=== PATIENT | male | born 2000 | race Caucasian/White ===

== ENCOUNTER 2018-12-22 17:56 | Inpatient (IN) ==
[2018-12-22 19:57] LABS: BASO# 0.04 X1000 (0.0-0.2); BASO% 0.5 % (0.0-0.8); EOS# 0.09 X1000 (0.0-0.7); HEMATOCRIT 48.1 % (42.0-52.0); HEMOGLOBIN 16.9 g/dL (14.0-18.0); IMM GRAN# 0.01 X1000 (0.0-0.04); IMM GRAN% 0.1 % (0.0-0.5); LYMPH# 2.51 X1000 (1.2-3.4); LYMPH% 28.4 % (20.5-51.1); MCH 28.8 PG (27-31); MCHC 35.1 g/dL (33-37); MCV 81.9 FL (81-99); MONO# 0.75 X1000 (0.11-0.59); MONO% 8.5 % (1.7-9.3); MPV 10.2 FL (7.4-10.4); NEUT# 5.43 X1000 (1.4-6.5); NEUT% 61.5 % (42.2-75.2); PLT 244 X1000 (130-400); RBC 5.87 XMIL (4.7-6.1); WBC 8.83 X1000 (4.8-10.8)
[2018-12-22 20:38] LABS: AGAP 12; ALKALINE PHOSPHATASE 69 U/L (32-122); BUN 16 mg/dL (8-22); CHLORIDE 101 mmol/L (98-107); CK PROFILE 5792 U/L (24-204); COSMO 280; CREATININE 1.1 mg/dL (0.7-1.2); ESTIMATED GFR > 60; GLUCOSE 87 mg/dL (70-104); GOT 110 U/L (10-34); GPT 85 U/L (10-44); POTASSIUM 3.7 mmol/L (3.5-5.1); SODIUM 140 mmol/L (136-145); TCO2 27 mmol/L (25-35); TOTAL PROTEIN 7.7 g/dL (6.3-8.3)
--- NOTE | 2018-12-22 20:58 | Extremity Venous Study ---
Venous U/S Right Arm - 12/22/2018 INDICATION: swollen arm TECHNIQUE: COMPARISON: None FINDINGS: The veins of the right arm are fully compressible. There is normal color and pulse wave Doppler signal. Arterial signal appears normal. No fluid collections. IMPRESSION: Negative exam. Electronically signed by Judson Leon 12/22/2018 8:56 PM
[2018-12-22 21:08] LABS: CK INDEX 0.1 (0.0-2.5); CK-MB 3.03 ng/mL (0.0-5.0)
--- NOTE | 2018-12-22 22:29 | Diag Imaging Result Doc PS360 ---
CT THORAX W/CONTRAST - 12/22/2018 INDICATION: RIGHT ARM EDEMA COMPARISON: None FINDINGS: Heart and great vessels are normal. Upper abdominal images are normal. The chest is clear. No adenopathy. Bones are intact. The subclavian arteries and veins are patent bilaterally. The major arteries and veins of the right upper extremity are normal. There is some nonspecific subcutaneous edema in the right axilla and right arm. No drainable fluid collections. IMPRESSION: Nonspecific subcutaneous edema in the right axilla and right arm. Normal exam of the veins and other vessels. This exam was performed using automated exposure control, adjustment of mA or kV according to patient size, and/or use of iterative reconstruction technique Electronically signed by Judson Leon 12/22/2018 10:26 PM
[2018-12-22] MEDS ORDERED: NS 2,000 ML IV ONE (23:12)
[2018-12-23] MEDS ORDERED: NS 2,000 ML IV ONE (00:25)
[2018-12-23] MEDS ORDERED: TYLENOL PO PRN (00:25)
[2018-12-23 07:54] LABS: CK INDEX 0.1 (0.0-2.5); CK-MB 2.22 ng/mL (0.0-5.0)
--- NOTE | 2018-12-23 11:37 | HISTORY AND PHYSICAL ---
PRIMARY CARE PHYSICIAN: None. CHIEF COMPLAINT: Right elbow swelling that began yesterday and progressively worsened. HISTORY OF PRESENTING ILLNESS: This is a 18-year-old, male, who presents to [facility] ER with complaints of swelling from the top of his mid forearm down to the right elbow that began yesterday morning. There was minimal warmth to touch. No erythema. No signs of infection noted. He states that he does lift weights, but his last time to lift weights was last Saturday and had no problems since then. He states yesterday that he just did not feel good all over, so he came to the emergency room. His white blood cell count was normal at 8.83. He had an elevated D-dimer at 1.55. We did a chest CT that showed nonspecific subcutaneous edema in the right axilla and right forearm, but normal exam of the veins and other vessels. We did a venous ultrasound of his right arm that was negative. His CPK was elevated at 5792 with a CK-MB of 3.03. This a.m., it went down to a CK of 4076 with a CK-MB of 2.22. He was admitted for further evaluation and treatment. PAST MEDICAL HISTORY: None. PAST SURGICAL HISTORY: None. FAMILY HISTORY: Reviewed and noncontributory. SOCIAL HISTORY: Currently lives with family. Denies any tobacco, alcohol or illicit drug use. ALLERGIES: He has no known drug allergies. HOME MEDICATIONS: He does not take any medication on a routine basis. LABORATORY DATA: Showed a white blood cell count of 8.83, a hemoglobin of 16.9, hematocrit 48.1, platelets of 244. D-dimer of 1.55. Sodium 140, potassium 3.7, chloride 101, CO2 27, BUN of 16, creatinine 1.1, glucose 87, AST of 110, ALT of 85. CK of 5792 with a CK-MB of 3.03. Repeat this morning showed a CK of 4076 with a CK-MB of 2.22. X-RAYS: Right upper extremity venous Doppler showed a negative exam. Chest CT showed nonspecific subcutaneous edema in the right axilla and right arm. Normal exam of the veins and other vessels. Chest was clear. REVIEW OF SYSTEMS: He denied any fever, chills, blurred vision, dizziness, chest pain, coughing, shortness of breath. He did have some pain to his right elbow with the swelling. Denied any abdominal pain, constipation, diarrhea, burning or hurting with urination. PHYSICAL EXAMINATION: VITAL SIGNS: On arrival, he had a temperature of 98 degrees, a pulse of 90, respirations 18, blood pressure 127/72, satting 98% on room air. GENERAL: This is a 18-year-old male, who is lying in the bed and answers questions appropriately. HENT: Normocephalic, atraumatic. Normal ENT inspection. Oropharynx and nares are clear. EYES: Pupils are equal, round, reactive to light and accommodation. Extraocular movements are intact. NECK: Normal inspection. Normal range of motion. LUNGS: Clear to auscultation bilaterally with equal lung expansion and chest wall movement. HEART: With regular rate and rhythm. No murmurs, rubs, or gallops. ABDOMEN: Soft, nontender, nondistended. Bowel sounds are present x4 quadrants. MUSCULOSKELETAL: He has edema to his right elbow with some mild warmth to touch. No erythema or signs of infection noted otherwise. Moves all of his extremities well. Has 5/5 strength in all extremities. NEUROLOGICAL: The cranial nerves 2-12 appear grossly intact. ASSESSMENT: 1. Right elbow edema. 2. Rhabdomyolysis. 3. An elevated D-dimer ruled out for pulmonary embolus or deep vein thrombosis to his right upper extremity. PLAN: He has been admitted to the medical unit. Placed on a regular diet. We are going to consult Orthopedics. We are going to x-ray his right elbow. Continue normal saline at 125 mL an hour. Recheck CPK in the morning along with a CBC and a BMP. Further orders after seen by attending and by pension consultant. Dictated by ANGELINA De La O for Bebeto Robison MD cc: ANGELINA De La O MD
--- NOTE | 2018-12-23 11:40 | Diag Imaging Result Doc PS360 ---
EXAM: ELBOW COMPLETE RIGHT HISTORY: Right elbow swelling,pain TECHNIQUE: Right elbow, three views COMPARISON: None. FINDINGS: No fracture. No dislocation. No other bony abnormality. No foreign body. IMPRESSION: No bony abnormality. Electronically signed by Ken Mariee 12/23/2018 11:38 AM
[2018-12-23] MEDS: NS 1,000 ML IV SCH ×2 (12:43→19:54)
[2018-12-23] MEDS: NAPROSYN PO SCH ×2 (14:46→21:16)
--- NOTE | 2018-12-23 22:01 | HISTORY AND PHYSICAL ---
ADDENDUM: Patient was seen and examined by myself. Full note dictated and discussed with nurse practitioner. Patient presented to the hospital with right arm and elbow swelling and pain. Notes he has been losing weight steadily over the past few days. His CPK is elevated at 5000. We are going to admit him to the hospital, treat him for rhabdomyolysis. We will ask Orthopedics to evaluate his arm pain and will follow. cc: Bebeto Robison MD
[2018-12-24] MEDS: NS 1,000 ML IV SCH ×3 (04:14→15:43)
[2018-12-24 05:40] LABS: BASO# 0.02 X1000 (0.0-0.2); BASO% 0.3 % (0.0-0.8); EOS% 3.1 % (0.0-10.0); HEMOGLOBIN 13.7 g/dL (14.0-18.0); LYMPH# 2.64 X1000 (1.2-3.4); LYMPH% 40.9 % (20.5-51.1); MCH 28.8 PG (27-31); MCHC 34.3 g/dL (33-37); MCV 84.2 FL (81-99); MONO# 0.58 X1000 (0.11-0.59); MPV 10.2 FL (7.4-10.4); NEUT# 3.02 X1000 (1.4-6.5); NEUT% 46.7 % (42.2-75.2); PLT 202 X1000 (130-400); RBC 4.75 XMIL (4.7-6.1); RDW 11.9 % (11.5-14.5); WBC 6.46 X1000 (4.8-10.8)
--- NOTE | 2018-12-24 05:56 | ORTHOPAEDICS CONSULTATION ---
DATE: 12/23/2018 CHIEF COMPLAINT: Right elbow pain and swelling. HISTORY OF PRESENT ILLNESS: This 18-year-old male is are he presented to [facility] with complaints of swelling from his right upper extremity down his forearm. This swelling started yesterday morning. He states it has improved since then. Blood work was obtained in the emergency department and it was noted that he had elevated D-dimer. They did a chest CT and it showed nonspecific subcutaneous edema and rash on the right forearm. Otherwise, his ultrasound was normal of the right upper extremity. His CPK levels was elevated with 5792 and CK-MB of 3.03. He is admitted for further evaluation and treatment and to rehydrate him. PAST MEDICAL HISTORY: Patient denies. PAST SURGICAL HISTORY: Patient denies. FAMILY HISTORY: Noncontributory. SOCIAL HISTORY: Lives with family. Denies tobacco, alcohol, or drug use. ALLERGIES: No known drug allergies. HOME MEDICATIONS: He denies. LABORATORY DATA: White blood cells 8.3, hemoglobin 16.9, hematocrit 48.1. D- dimer 1.55. Sodium 140, potassium 3.7, chloride 101, BUN 16, creatinine 1.1, glucose 87, AST 110, ALT 85, creatine kinase latest was 4076, CK-MB 2.2. Vital signs have been stable. His x-rays of the right upper extremity were negative. REVIEW OF SYSTEMS: The patient denies fever, chills, or chest pain. He also denies shortness of breath. Twelve point review of systems performed and pertinent positives are listed in HPI. PHYSICAL EXAMINATION: General: The patient is awake, alert, sitting on the hospital bed comfortably. HEENT: Head is atraumatic, normocephalic. Normal ENT inspection. Eyes: Equal, round and reactive to light. Neck: Supple. Lungs: There is equal chest expansion, rise and fall. Heart: Regular rate and rhythm. Abdomen: Soft, nontender. Musculoskeletal: There is some moderate to severe edema to the right upper extremity from his elbow down to his forearm. There is some warmth to the touch. There is no erythema or signs of infection at this time. He can bend the elbow and move the extremities well. There is a negative Speed test. There is good range of motion. There is 5/5 sales and marketing associate strength. There is good radial pulse. There is good capillary refill. ASSESSMENT: 1. Right elbow edema with overuse injury. 2. Rhabdomyolysis. 3. Elevated D-dimer. PLAN: At this time, we will continue with rest, ice, compression and elevation. He can start taking some anti-inflammatories when his rhabdomyolysis is more under control. He is to follow up with Orthopedics in the clinic in about 1 week. We will check back on him then. Dictated by ANGELINA Kebede for Rudy Gore MD cc: ANGELINA Kebede MD [facility]
[2018-12-24 06:14] LABS: AGAP 9; BUN 16 mg/dL (8-22); CALCIUM 8.8 mg/dL (8.8-10.2); CHLORIDE 107 mmol/L (98-107); COSMO 280; ESTIMATED GFR > 60; GLUCOSE 93 mg/dL (70-104); SODIUM 140 mmol/L (136-145); TCO2 24 mmol/L (25-35)
[2018-12-24 07:25] LABS: CK-MB 2.05 ng/mL (0.0-5.0)
[2018-12-24 07:26] LABS: CK INDEX 0.1 (0.0-2.5)
[2018-12-24] MEDS ORDERED: SODIUM BICARBONATE 8.4% 150 MEQ in D5W 1,000 ML IV SCH (07:30)
[2018-12-24] MEDS: NAPROSYN PO SCH ×2 (09:36→20:04)
[2018-12-24 18:49] LABS: CK INDEX 0.1 (0.0-2.5); CK-MB 2.28 ng/mL (0.0-5.0)
--- NOTE | 2018-12-24 19:59 | PROGRESS NOTE ---
DATE: 12/24/2018 SUBJECTIVE: The patient states that his arm is improving. He is still having swelling and pain, but overall it is better. Denies any fevers or chills. OBJECTIVE: Vital signs reviewed. Temperature 97.6 degrees, pulse 65, respiratory 18, BP 116/58.General: The patient is awake, alert. He is in no distress, notes that he is feeling a little bit better. HEENT: Normocephalic. Neck supple. Cardiovascular: Regular rate. Chest clear. Abdomen soft. Extremities: Moves all extremities. ASSESSMENT: 1. Rhabdomyolysis. CPK has decreased. It was 5000, currently at 2200. 2. Right elbow pain and edema, more likely overuse injury. PLAN: We will continue the patient in the hospital. Recheck his CPK. If it is better, hopefully we can discharge home tonight. If not, he should be able to discharge tomorrow. cc: Bebeto Robison MD
[2018-12-25] MEDS ORDERED: SODIUM BICARBONATE 8.4% 150 MEQ in STERILE WATER INJ. 1,000 ML IV SCH (01:00)
--- NOTE | 2018-12-25 01:50 | PROVIDER DOCUMENTATION ---
This chart was entered by Sabine Nunn Scribe, acting as scribe for Harrison Melo MD. HPI-General Adult - General Chief Complaint: Extremity Pain Stated Complaint: RIGHT ARM SWOLLEN Time Seen by Provider: 12/22/18 19:25 Source: patient Allergies/Adverse Reactions: Patient Allergies Allergy/AdvReac Type Severity Reaction Status Date / Time No Known Allergies Allergy Verified 12/22/18 18:15 Home Medications: Home Medication List Medication Instructions Recorded Confirmed Last Taken Type NK [No Home Medications] 12/22/18 12/22/18 Unknown History - History of Present Illness -Gen Adult Nature of Presenting Problems: 18yom presents to ED cc swelling in right elbow down to top of mid forearm since this morning. Pt reports he was weightlifting on last Saturday but hasn't done any since. Pt denies pain and has full ROM. Location of Pain/Injury: reports: upper extremity (right elbow) Pain Radiation: reports: arm(s) (right top mid forearm) Quality of Pain: reports: none Onset/Duration: reports: this morning Timing: reports: still present Context/Activities at Onset: reports: moderate activity Modifying Factors: improves with: nothing Associated Symptoms: reports: denies symptoms Similar Symptoms Previously?: No Recently seen or treated by another doctor?: No Review of Systems - Adult - REVIEW OF SYSTEMS - ADULT Constitutional: reports: no symptoms reported Past History - Adult - PAST MEDICAL HISTORY-ADULT Review of Records: reports: Old Records Reviewed Major Childhood Illnesses: reports: denies history Cardiovascular: reports: denies history Respiratory: reports: denies history Gastrointestinal: reports: denies history Obstetrical/Gynecological: reports: denies history Genitourinary: reports: denies history Musculoskeletal: reports: denies history Neurological: reports: denies history Endocrine/Immune: reports: denies history Other Conditions: reports: denies history - IMMUNIZATION STATUS Childhood Immunizations: See Nurse Assessment Flu Vaccine: See Nurse Assessment - FAMILY HISTORY Family History: reviewed, not pertinent Physical Exam-General - PHYSICAL EXAM-ADULT Initial Vital Signs Reviewed: Yes - CONSTITUTIONAL General Appearance: appears well, alert, no apparent distress. negative: anxious - EYES Eyes: PERRL/EOMI, pink conjunctivae. negative: pale conjunctivae, photophobia - HEAD, EARS, NOSE, MOUTH & THROAT HENMT: normocephalic/atraumatic, moist mucous membranes, normal ENT inspection. negative: angioedema - NECK Neck: non-tender, full range of motion, supple, normal inspection. negative: C- spine tenderness - RESPIRATORY Respiratory: chest non-tender, lungs clear, normal breath sounds, no pleuratic chest pain, no respiratory distress, no accessory muscle use. negative: crackles, rales, rhonchi, stridor, wheezing - CARDIOVASCULAR Cardiovascular: normal peripheral pulses, regular rate, rhythm, no edema, no gallop, no JVD, no murmur. negative: bradycardia, tachycardia - GASTROINTESTINAL (ABDOMEN) Abdominal Exam: normal bowel sounds, non tender, soft, no organomegaly, no p ulsatile mass. negative: distended, guarding, rigid, rebound, tenderness, hernia, mass - MUSCULOSKELETAL Back Exam: normal inspection, no CVA tenderness, no vertebral tenderness. negative: ecchymosis, swelling Extremity: normal range of motion, non-tender, swelling (right elbow down to top of mid forearm) - SKIN Integumentary: normal turgor, erythema (mild, right elbow), warm (mild, right elbow). negative: cyanosis, diaphoresis, jaundice - NEUROLOGIC Neurologic: bowling ball grader II-XII nml as tested, grossly normal, no motor/sensory deficits. negative: facial droop, focal weakness, motor weakness, sensory deficit - PSYCHIATRIC Psych/Mental Status: normal mood/affect, normal thought content, normal thought process, oriented x 3. negative: disoriented x 3, anxious, disheveled, depressed affect Progress - PLAN OF CARE/RESULTS Progress/Plan/Lab Results: Vital Signs - 8 hr 12/22/18 18:11 Temperature 98 F Pulse Rate 90 Respiratory Rate 18 Blood Pressure 127/72 O2 Sat by Pulse Oximetry 98 Orders Category Date Time Status CBC WITH ELECTRONIC DIFF [HEME] Stat Lab 12/22/18 19:22 Ordered CK PROFILE [SP CHEM] Stat Lab 12/22/18 19:22 Ordered COMPREHENSIVE METABOLIC PANEL [CHEM] Stat Lab 12/22/18 19:22 Ordered D-DIMER [COAG] Stat Lab 12/22/18 19:22 Ordered Result Diagrams: 12/24/18 05:18 12/24/18 05:18 - CT/MRI 1 CT Study: Thorax Impression: See EMR Report (IMPRESSION: Nonspecific subcutaneous edema in the right axilla and right arm. Normal exam of the veins and other vessels. This exam was performed using automated exposure control, adjustment of mA or kV according to patient size, and/or use of iterative reconstruction technique Electronically signed by Judson Leon 12/22/2018 10:26 PM) - ULTRASOUND (By Radiology) 1 US Study: Upper Ext (right arm) Impression: See EMR Report (IMPRESSION: Negative exam. Electronically signed by Judson Leon 12/22/2018 8:56 PM) Departure - Departure Date of Disposition Decision: 12/22/18 Time of Disposition Decision: 23:30 DIAGNOSIS: Rhabdomyolysis Disposition: ADMITTED INPATIENT 09 Certified Medical Emergency: Emergent Condition: Stable - Critical Care Note This patient required my direct & personal management of CC.: No Attestation - Physician/ ALEE Attestation Patient care was provided by Advanced Practice Provider:: No The physician spent face to face time with patient:: Yes Advanced Practice Provider documentation review:: Supervising physician onsite and consulted in the evaluation and care of this patient. The physician did have a face to face encounter with the patient. This chart was documented by the indicated scribe, (Sabine Nunn Scribe) and accurately reflects the services I performed and decisions made by me, Harrison Melo MD, as attested by the provider's signature.
[2018-12-25] MEDS: NS 1,000 ML IV SCH (06:09)
[2018-12-25 06:41] VITALS: BP 102/61
[2018-12-25 08:14] LABS: AGAP 9; ALBUMIN 3.9 g/dL (3.5-5.0); ALKALINE PHOSPHATASE 58 U/L (32-122); BUN 16 mg/dL (8-22); CALCIUM 8.6 mg/dL (8.8-10.2); CHLORIDE 104 mmol/L (98-107); COSMO 285; ESTIMATED GFR > 60; GLUCOSE 104 mg/dL (70-104); GOT 29 U/L (10-34); GPT 40 U/L (10-44); MAGNESIUM 1.7 mg/dL (1.5-2.7); POTASSIUM 3.7 mmol/L (3.5-5.1); SODIUM 142 mmol/L (136-145); TCO2 29 mmol/L (25-35); TOTAL PROTEIN 6.3 g/dL (6.3-8.3)
[2018-12-25] MEDS: NAPROSYN PO SCH (08:29)
[2018-12-25 08:37] LABS: CK INDEX 0.2 (0.0-2.5); CK-MB 1.65 ng/mL (0.0-5.0)
--- NOTE | 2018-12-25 15:23 | DISCHARGE SUMMARY ---
ADMISSION DATE: 12/23/2018 DISCHARGE DATE: 12/25/2018 PRIMARY CARE PHYSICIAN: None. ADMISSION DIAGNOSES: 1. Right elbow edema. 2. Rhabdomyolysis. 3. Elevated D-dimer that was ruled out for pulmonary embolism or deep vein thrombosis of his right upper extremity. DISCHARGE DIAGNOSES: 1. Right elbow pain and edema, most likely related to overuse injury. 2. Rhabdomyolysis. SUMMARY OF FINDINGS: This is a 18-year-old male who presented to the Emergency Room with complaints of swelling to the top of his mid forearm down to his right elbow that began on the morning prior to arrival. There was minimal warmth to touch but no erythema. He states he had been lifting weights the last Saturday but had had no problems since then. Stated that the day prior, he just did not feel good all over. When he came to the Emergency Room, he had an elevated D-dimer of 1.55. We did a CT that showed nonspecific subcutaneous edema in the right axilla and right forearm but normal exam of the veins and other vessels. We did a venous ultrasound of the right arm that was negative. He was noted to have a CPK that was elevated at 5792 with a CK-MB of 3.03. He was admitted. We did an x-ray of his right elbow that showed no bony abnormality. We did an orthopedic consultation and they felt it was edema to the right elbow with overuse injury and wanted to continue rest, ice, compression and elevation. Could start taking antiinflammatories once the rhabdomyolysis is more under control. He has slowly trended down. Today his CPK was 1049, so it is felt that he can safely be discharged home today. DISCHARGE MEDICATIONS: None. FOLLOWUP: He will follow up with Dr. Gore from Orthopedics on 12/31/2018 at 9:00 a.m.. All discharge instructions have been reviewed with the patient and he verbalized understanding. Time spent on discharge is 35 minutes. Dictated by ANGELINA De La O for Bebeto Robison MD cc: ANGELINA De La O MD
--- NOTE | 2018-12-25 20:20 | DISCHARGE SUMMARY ---
ADMISSION DATE: 12/23/2018 DISCHARGE DATE: 12/25/2018 HOSPITAL COURSE: The patient seen and examined by myself. Full note dictated and discussed with nurse practitioner. On discharge, the patient is awake and alert. He is in no distress. He was admitted to the hospital secondary to right upper extremity injury and swelling. This has improved. His pain is better. He had a CPK elevated at 5000. It is currently below 1500. He is tolerating a full diet. . PLAN: We will discharge the patient home. Discussed with him that he does not need to work out for the next couple of weeks until his arm is better and then should take it much easier than he did previously. Further orders as needed. cc: Bebeto Robison MD MTDD
== END 2018-12-25 12:10 | disposition home or self-care (01) | DRG 558 ==
LOC: P.ED 17:56 → P.MEDSURG 17:56 → OBSVTOIN 12-23 00:03
PROVIDERS: ATTEND Family Medicine